=== PATIENT | male | born 1970 | race Hispanic/Latino ===

== ENCOUNTER → 2024-01-01 | Outpatient (CLI) | payer OTHER ==
[~2024-01-01] MED LIST: AMIT25TA9 PO; HYDR-4339 PO; IBUP-2071 PO; MIDAZOLAM HCL 1 MG/ML 2ML VIAL ONE
== END | disposition home or self-care (01) ==
LOC: RAH 06:49
PROVIDERS: ATTEND Neuromusculoskeletal Medicine & OMM
DX: M47.814 Spondylosis without myelopathy or radiculopathy, thoracic region (principal); M48.04 Spinal stenosis, thoracic region; M48.02 Spinal stenosis, cervical region; M54.6 Pain in thoracic spine; M50.00 Cervical disc disorder with myelopathy, unspecified cervical region
CPT/HCPCS: 72141; 72146; J2250